=== PATIENT | female | born 1930 | race Caucasian/White ===

== ENCOUNTER 2018-11-10 08:09 | Emergency (ER) | payer OTHER, MEDICARE ==
--- NOTE | 2018-11-10 08:44 | EDM.PDOC ---
ED HPI GENERAL MEDICAL PROBLEM - General Chief Complaint: Lower Extremity Injury/Pain Stated Complaint: Hip pain Time Seen by Provider: 11/10/18 08:35 Source of Information: Reports: Patient, [facility] Records, Old Records ([facility] chart/EMR) History Limitations: Reports: Altered Mental Status - History of Present Illness INITIAL COMMENTS - FREE TEXT/NARRATIVE: The patient was brought to the emergency room via transport vehicle in a wheelchair from [facility] in [place] for evaluation of 10/10 right hip pain, which does radiate to the right knee, with additional 2/10 right mid proximal arm pain with symptoms starting after a minor unwitnessed fall at the long-term this past evening at about 23:50 hours. The patient did receive 25 mg of Ultram at 1 AM this morning and is having some difficulty with ambulation today despite patient ambulating with minimal guarding after the above injury. She is a somewhat poor historian secondary to her baseline organic brain syndrome, which is stable by history. Patient apparently felt her leg give out while walking to the bathroom with no history of head injury, aggravation of her previous neck injury, loss of consciousness, change in mental status, headaches, visual changes, diplopia, change in neurological status, or other complaints or injuries. The patient denies any chest pain/ pressure, heart flutter, dizziness, orthostasis, orthopnea, diaphoresis, paresthesias, recent decreased exercise tolerance, or any other anginal-type symptoms. No recent history of abdominal pain, heartburn, nausea, diarrhea, melena, gross hematochezia, or any food intolerance, including fatty foods, etc.. She denies any gross hematuria, colic, or other UTI symptoms. The patient also denies any recent fever, cough, wheezing, dyspnea, etc.. Onset: Today, Sudden Onset Date: 11/09/18 Onset Time: 23:50 Duration: Constant Location: Reports: Upper Extremity, Right, Lower Extremity, Right, Radiates to ( Right knee as above). Denies: Head, Face, Neck, Chest, Abdomen, Back, Pelvis, Upper Extremity, Left, Lower Extremity, Left Quality: Reports: Ache, Same as Previous Episode Severity: Severe Improves with: Reports: Rest Worsens with: Reports: Movement Context: Reports: Trauma (As above) Associated Symptoms: Reports: Confusion (Stable baseline). Denies: Chest Pain, Cough, cough w sputum, Diaphoresis, Fever/Chills, Headaches, Loss of Appetite, Malaise, Nausea/Vomiting, Seizure, Shortness of Breath, Syncope, Weakness Treatments CONSUMER INSIGHT ANALYST: Reports: Other Medication(s) (As above) Right Hip Pain Score (Numeric/FACES): 10 Right Arm Pain Score (Numeric/FACES): 2 - Related Data Allergies Allergy/AdvReac Type Severity Reaction Status Date / Time cefaclor [From Ceclor] Allergy hives, high Verified 11/10/18 08:26 ciprofloxacin [From Cipro] Allergy unknown Verified 11/10/18 08:26 Penicillins Allergy hives Verified 11/10/18 08:26 (high) piroxicam Allergy Bronchospas Verified 11/10/18 08:26 ms Sulfa (Sulfonamide Allergy unknown Verified 11/10/18 08:26 Antibiotics) sulindac Allergy hives high Verified 11/10/18 08:26 clothes dye Allergy Cannot Uncoded 11/10/18 08:26 Remember Home Meds: Home Meds Carboxymethylcellulose Sodium [Refresh Tears 0.5%] 2 drop EYEBOTH TID@0700,1300, 1800 09/03/18 [History] Cholecalciferol (Vitamin D3) [Vitamin D3] 1,000 units PO BID@0700,1800 09/03/18 [History] Eucalyptus Oil/Menthol/Camphor [Vicks Vaporub Ointment] 1 applic TOP ASDIRECTED PRN 09/03/18 [History] Gabapentin [Neurontin] 200 mg PO QPM 09/03/18 [History] Levothyroxine Sodium [Synthroid] 175 mcg PO DAILY@0700 09/03/18 [History] Loperamide [Imodium] 4 mg PO ASDIRECTED PRN 09/03/18 [History] Non-Formulary Medication [NF Drug] 1 each PO ASDIRECTED 09/03/18 [History] Phenylephrine HCl [Sudogest PE] 10 mg PO Q4HR PRN 09/03/18 [History] Psyllium Husk (With Sugar) [Metamucil Powder] 1 tbsp PO DAILY PRN 09/03/18 [ History] Acetaminophen [Tylenol Arthritis] 650 mg PO BID #100 tablet.er 09/07/18 [Rx] Acetaminophen [Tylenol] 650 mg PO Q4H PRN tablet 09/07/18 [Rx] Albuterol [Proventil Neb Soln] 2.5 mg NEB Q2H PRN #30 neb 09/07/18 [Rx] Albuterol/Ipratropium [DuoNeb 3.0-0.5 MG/3 ML] 3 ml NEB Q4HR PRN #30 neb [Rx] Albuterol/Ipratropium [DuoNeb 3.0-0.5 MG/3 ML] 3 ml NEB QID #120 neb 09/07/18 [ Rx] Budesonide [Pulmicort] 0.5 mg NEB BIDRT #60 neb 09/07/18 [Rx] Dextromethorphan/guaiFENesin [Mucinex DM ER 600-30 MG] 1 tab PO BID PRN tab.er 09/07/18 [Rx] Diltiazem [Cardizem CD] 120 mg PO QPM #90 cap.cd 09/07/18 [Rx] Sertraline [Zoloft] 50 mg PO QPM #30 tablet 09/07/18 [Rx] Carboxymethylcellulose/Lytes [Dereck-Stir Oral [place]] 1 applic MM Q1H PRN 11/10/18 [History] Celecoxib [CeleBREX] 200 mg PO DAILY 11/10/18 [History] Hydrocortisone [Hydrocortisone 1% Crm] 1 applic TOP QID PRN 11/10/18 [History] Menthol/Methyl Salicylate [Analgesic [place]] 1 applic TOP DAILY 11/10/18 [History] [place]-3/DHA/Epa/Fish Oil [[place] 3 500 Softgel] 1 each PO DAILY 11/10/18 [History ] Omeprazole 20 mg PO BID 11/10/18 [History] Phenol [Ora Relief] 1 spray MM Q2H PRN 11/10/18 [History] Temazepam [Restoril] 15 mg PO BEDTIME 11/10/18 [History] guaiFENesin/Dextromethorphan [Tussin DM Clear] 10 ml PO Q4H PRN 11/10/18 [ History] hydrOXYzine HCl [Atarax] 25 mg PO Q6H 11/10/18 [History] traMADol [Ultram] 25 mg PO Q6H PRN 11/10/18 [History] Past Medical History HEENT History: Reports: Allergic Rhinitis, Cataract, Hard of Hearing, Impaired Vision, Macular Degeneration, Otitis Media, Other (See Below). Denies: Glaucoma , Retinal Detachment Other HEENT History: Bilateral presbycusis with patient not having hearing aid therapy. She does wear glasses. Dry eye syndrome. Cardiovascular History: Reports: Afib, Arrhythmia, Cardiomyopathy, Heart Failure , High Cholesterol, Hypertension, Other (See Below). Denies: Aneurysm, Blood Clots/VTE/DVT, CAD, Heart Murmur, GA, Pacemaker, PVD, Syncope Other Cardiovascular History: Atrial fibrillation with rapid ventricular response on 09/03/18. PACs, PVCs. Repolarization changes versus borderline incomplete bundle branch block. Orthostatic hypotension as below. Respiratory History: Reports: Bronchitis, Recurrent, COPD, Intubation, Previous , Pneumonia, Recurrent, Pulmonary Fibrosis, Other (See Below). Denies: Asthma, Intubation, Difficult, PE, Pneumothorax, Sleep Apnea, TB Other Respiratory History: idiopathic pulmonary fibrosis. Gastrointestinal History: Reports: Cholelithiasis, Chronic Constipation, Chronic Diarrhea, Diverticulosis, Gastritis, GERD, Hiatal Hernia, PUD, Other ( See Below). Denies: Celiac Disease, Colon Polyp, GI Bleed, Hepatitis, Inflammatory Bowel Disease, Irritable Bowel Syndrome, Jaundice, Pancreatitis Other Gastrointestinal History: Dysphagia. Moderate hiatal hernia. Severe diverticulosis requiring partial colectomy as below. Large duodenal diverticulum by upper GI in 2013 Genitourinary History: Reports: Renal Calculus, Urinary Incontinence, UTI, Recurrent, Other (See Below). Denies: Acute Renal Failure, Chronic Renal Insuffiency, Retention, Urinary, STD Other Genitourinary History: Urethral stones and periurethral diverticuli by CT scan on 11/10/18. TOBACCO ROLLER History: Reports: , Spontaneous : 9 Para: 8 LMP (Approximate): Other (See Below) Other TOBACCO ROLLER History: Surgical menopause as below. Atrophic vaginitis with previous topical Premarin vaginal cream therapy however not currently. SAB in first trimester requiring D&C as below. Otherwise, Full term without complications during pregnancies or deliveries. Musculoskeletal History: Reports: Arthritis, Back Pain, Chronic, Fracture, Neck Pain, Chronic, Osteoarthritis, Osteoporosis, Other (See Below). Denies: Gout, RA, SLE Other Musculoskeletal History: C1 arch fracture with secondary grade 1 spondylolisthesis with current chronic hard collar therapy. Cervical spinal fusions as below. T11 vertebral body compression fracture. Kyphosis, degenerative disc disease with radiculopathy, spondylosis, and chronic neck and back pain. Partial left shoulder rotator cuff tear. Neurological History: Reports: Alzheimers Disease, Neuropathy, Diabetic, Neuropathy, Peripheral, Other (See Below). Denies: Cerebral Aneurysms, Concussion, CVA, Headaches, Chronic, Head Trauma, Migraines, MS, Parkinson's, Seizure, TIA, Vertigo Other Neuro History: Borderline organic brain syndrome. Cerebral atrophy by CT scan. Orthostatic hypotension. Psychiatric History: Reports: Addiction, Anxiety, Dementia, Depression, Other ( See Below). Denies: Abuse, Victim of, ADD, ADHD, Hallucinations, Psych Hospitalization(s), Psychosis, PTSD, Suicide Attempt, Suicidal Ideation Other Psychiatric History: Organic brain syndrome as above. Chronic insomnia. Chronic Ultram use. Endocrine/Metabolic History: Reports: Diabetes, Type II, Hypothyroidism, Osteopenia, Osteoporosis, Other (See Below). Denies: Diabetes, Gestational, Diabetes, Type I, Diabetes Mellitus, Type 3c, IDDM, Obesity/BMI 30+ Other Endocrine/Metabolic History: Hypokalemia. Hypomagnesemia. Hypoalbuminemia. Hematologic History: Reports: None. Denies: Anemia, B12 Deficiency, Blood Transfusion(s), Iron Deficiency Immunologic History: Reports: None. Denies: AIDS, HIV, SLE Oncologic (Cancer) History: Reports: None. Denies: Basal Cell Carcinoma, Breast , Cervix, Hodgkin's Lymphoma, Leukemia, Lymphoma, Malignant Melanoma, Non- Hodgkin's Lymphoma, Ovarian, Uterine Dermatologic History: Reports: Seborrheic Dermatitis. Denies: Eczema, Psoriasis - Infectious Disease History Infectious Disease History: Reports: Chicken Pox, Measles, Mumps. Denies: C- Difficile, Meningitis, Mononucleosis, MRSA, Pertussis (Whooping Cough), Rheumatic Fever, Rubella, Scarlet Fever, Shingles, TB, VRE - Past Surgical History Head Surgeries/Procedures: Reports: None HEENT Surgical History: Reports: Cataract Surgery, Myringotomy w Tube(s), Oral Surgery, Other (See Below). Denies: Adenoidectomy, Laser Surgery, LASIK, Naso- Sinus Surgery, Tonsillectomy Other HEENT Surgeries/Procedures: Multiple tooth extractions. Left cataract surgery on 01/23/04. Right cataract surgery on 12/19/03. Bilateral PE tubes in her 20s. Cardiovascular Surgical History: Reports: None. Denies: Pacer, Varicose Respiratory Surgical History: Reports: None. Denies: Thoracentesis GI Surgical History: Reports: Appendectomy, Cholecystectomy, Colon, Other (See Below). Denies: Colonoscopy, EGD, Hernia, Abdominal, Hernia, Inguinal, Hernia Repair/Other, Polypectomy Other GI Surgeries/Procedures: Partial colectomy secondary to diverticulosis. Laparoscopic cholecystectomy in her 40s. Female Surgical History: Reports: D&C, Hysterectomy, Other (See Below). Denies: Breast Biopsy, Section, Oophorectomy, Salpingo-Oophorectomy, Tubal Ligation Other Female Surgeries/Procedures: D&C secondary to SAB. Hysterectomy and probable concomitant bladder suspension. Unknown type of urethral surgery by CT scan on 11/10/18. Endocrine Surgical History: Reports: None. Denies: Thyroid Biopsy Neurological Surgical History: Reports: C-Spine, Lumbar Spine, Spinal Fusion, Other (See Below) Other Neurological Surgeries/Procedures: Spinal fusion of C3-4 and C5-C6. Unknown type of lumbar surgery. Musculoskeletal Surgical History: Reports: None. Denies: Arthroscopic Procedure , Carpal Tunnel, Ganglion Cyst, Joint Replacement, ORIF, Shoulder Surgery Oncologic Surgical History: Reports: None Dermatological Surgical History: Reports: None - Past Imaging History Past Imaging History: Reports: CAT Scan (CT of the C-spine on 10/21/[address] of the brain on 12/26/16. CT of the head and C-spine on 12/17/16.), MRI ( MRI of the C-spine on 09/13/18. MRI of the left shoulder on 10/12/12.), PFT (.), Swallow Study (09/16/18, 02/25/18 and 07/17/16.), Upper GI X-Ray/Series () Social & Family History - Family History Family Medical History: Unobtainable - Tobacco Use Smoking Status *Q: Never Smoker Tobacco Use Within Last Twelve Months: No Used Tobacco, but Quit: No Smoking Cessation Information Provided To Patient: No Second Hand Smoke Exposure: No Second Hand Smoke Education Provided: No - Caffeine Use Caffeine Use: Reports: Coffee (1 cup per day), Tea (2 cups per day). Denies: Energy Drinks, Soda - Alcohol Use Alcohol Use History: Yes Days Per Week of Alcohol Use: 0 Number of Drinks Per Day: 1 Number of Drinks Per Day Comment: Very occasional for holidays. No previous DWIs , problems with alcohol abuse, etc. 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 ED EXAM, GENERAL - Physical Exam Exam: See Below Exam Limited By: No Limitations General Appearance: Alert, WD/WN, No Apparent Distress Eye Exam: Bilateral Eye: EOMI, Normal Inspection (No nystagmus. Patient wearing glasses), PERRL Neck: Supple, Non-Tender, Limited Range of Motion (Secondary to hard cervical collar which is used chronically for her previous neck injury as below). No: Lymphadenopathy (L), Lymphadenopathy (R), Thyromegaly Respiratory/Chest: No Respiratory Distress, No Accessory Muscle Use, Chest Non- Tender, Rales (Mild bilateral basilar). No: Pleural Rub, Retractions Cardiovascular: Normal Peripheral Pulses, Regular Rate, Rhythm, No Edema, No Gallop, No JVD, No Murmur, No Rub. No: Gallop/S3, Gallop/S4, Friction Rub Peripheral Pulses: 1+: Dorsalis Pedis (L), Dorsalis Pedis (R), 2+: Radial (L), Radial (R) GI/Abdominal: Normal Bowel Sounds, Soft, Non-Tender, No Organomegaly, No Distention, No Abnormal Bruit, No Mass, Pelvis Stable. No: Guarding (Female) Exam: Deferred Rectal (Female) Exam: Deferred Back Exam: Full Range of Motion, Other (Mild kyphosis). No: CVA Tenderness (L) , CVA Tenderness (R), Muscle Spasm Extremities: No Pedal Edema, Normal Capillary Refill, Arm Pain (Nonspecific mild borderline palpation pain over the mid right humeral region with no significant ecchymosis, deformity, crepitation, etc.), Leg Pain (Mild to moderate outpatient pain over the right hip with no leg rotation, deformity, crepitation, etc.. Mild 2 centimeter abrasion over the right patella with overall good range of motion and no significant localized tenderness, effusion, deformity, instability, etc. of the right knee.), Limited Range of Motion (Mild in right hip secondary to discomfort). No: Joint Swelling, Mary's Sign Neurological: Alert, CN II-XII Intact, Normal Reflexes (Negative Babinski's), No Motor/Sensory Deficits, Confused (Stable baseline). No: Normal Gait ( Nonambulatory secondary to hip discomfort) Psychiatric: Normal Affect, Normal Mood Skin Exam: Warm, Dry, Intact, Normal Color, No Rash. No: Diaphoretic, Ecchymosis, Wound/Incision Lymphatic: No Adenopathy Course - Vital Signs Last Recorded V/S: Last Vital Signs Temp 36.5 C 11/10/18 08:11 Pulse 84 11/10/18 10:30 Resp 18 11/10/18 10:30 BP 134/88 11/10/18 10:30 Pulse Ox 94 L 11/10/18 10:30 Vital Signs - 24 hr 11/10/18 11/10/18 08:11 10:30 Temperature [ 36.5 C Temporal] Pulse, 85 84 Peripheral [ Right Pulse Oximetry] Respiratory 18 18 Rate Blood Pressure 152/68 H 134/88 [Right Upper Arm] O2 Sat by Pulse 95 94 L Oximetry - Orders/Labs/Meds Orders: Active Orders 24 hr Category Date Time Status Hip Min 2V or 3V w Pelvis Rt [CR] Stat Exams 11/10/18 08:47 Taken Hip wo Cont Rt [CT] Stat Exams 11/10/18 09:13 Taken Humerus Rt [CR] Stat Exams 11/10/18 08:46 Taken Obtain Past Medical Record [OM.PC] Routine Oth 11/10/18 08:44 Active Labs: None Meds: None - Radiology Interpretation Free Text/Narrative:: X-rays of the right hip including AP view of the pelvis shows moderate osteoarthritic changes including moderate bilateral coxarthrosis and osteoarthritic and osteoporotic changes in the limited view from the lumbar spine. No evidence of pelvic fracture. Possible right femoral head compression injury with no displacement, angulation, etc. X-rays of the right humerus, 2 views, shows evidence of moderate osteophytic changes but no fracture, dislocation, etc. Despite my initial request for preliminary verbal report from the radiology department at [facility], a fax copy of the final report was eventually sent to this facility. Note subcapital right femoral neck compression fracture with minimal impaction. Incidental previous apparent urethral surgery and urethral stones and diverticuli. Departure - Departure Time of Disposition: 11:50 Disposition: DC/Tfer to Acute Hospital 02 Condition: Fair Clinical Impression: Confusion, CHF, Congestive heart failure, Comfort measures only status Hypertension Qualifiers: Hypertension type: essential hypertension Qualified Code(s): I10 - Essential ( primary) hypertension COPD (chronic obstructive pulmonary disease) Qualifiers: COPD type: emphysema Emphysema type: panlobular Qualified Code(s): J43.1 - Panlobular emphysema Osteoarthritis Qualifiers: Osteoarthritis location: multiple joints Osteoarthritis type: primary Qualified Code(s): M15.0 - Primary generalized (osteo)arthritis Fracture of femoral neck, right Qualifiers: Encounter type: initial encounter Fracture type: closed Qualified Code(s): S72.001A - Fracture of unspecified part of neck of right femur, initial encounter for closed fracture Contusion Qualifiers: Encounter type: initial encounter Contusion area: knee Laterality: right Qualified Code(s): S80.01XA - Contusion of right knee, initial encounter - Discharge Information *PRESCRIPTION DRUG MONITORING PROGRAM REVIEWED*: Not Applicable *COPY OF PRESCRIPTION DRUG MONITORING REPORT IN PATIENT GUEVARA: Not Applicable Referrals: Sheets-Darlin Jacques MD [Primary Care Provider] - Forms: ED Department Discharge, Interfacility Transfer EMTALA - Problem List & Annotations (1) Fracture of femoral neck, right SNOMED Code(s): 2452355 Code(s): S72.001A - FRACTURE OF UNSP PART OF NECK OF RIGHT FEMUR, INIT Status: Acute Priority: High Current Visit: No Onset Date: 11/10/18 Annotation/Comment:: Compression fracture of the right femoral neck by CT scan as above. Various therapeutic options were discussed with the patient, who does agree to further treatment despite her status as below. It was confirmed through the long-term that the patient does make her own medical decisions. Her daughter, Collin, was notified by phone by the ER nurse, with daughter in agreement with the treatment plan as below. Initial telephone consultation at 10 :25 AM with [facility]. Subsequent telephone consultation at 11: [address] Camargo, orthopedic surgeon at [facility], who does accept the patient for direct admission, although he is requesting that the patient be admitted through the hospitalist service. Subsequent immediate telephone consultation with Dr. Gonzalez, hospitalist, who does accept the patient for admission, with no further treatment recommendations given. Ambulance transfer with puzzle assembler accompaniment. Qualifiers: Encounter type: initial encounter Fracture type: closed Qualified Code(s) : S72.001A - Fracture of unspecified part of neck of right femur, initial encounter for closed fracture (2) Contusion SNOMED Code(s): 024487398 Code(s): T14.8XXA - OTHER INJURY OF UNSPECIFIED BODY REGION, INITIAL ENCOUNTER Status: Acute Priority: High Current Visit: No Onset Date: 02/20 Annotation/Comment:: Mild Right arm and right knee contusion with no evidence of significant injury as above. Qualifiers: Encounter type: initial encounter Contusion area: knee Laterality: right Qualified Code(s): S80.01XA - Contusion of right knee, initial encounter (3) Comfort measures only status SNOMED Code(s): 65651326172165 Code(s): Z51.5 - ENCOUNTER FOR PALLIATIVE CARE Status: Chronic Priority: Medium Current Visit: No Annotation/Comment:: Previous comfort care only status. The patient is aware that she will have to lift her NO CODE STATUS for any surgery. (4) Osteoarthritis SNOMED Code(s): 545396764 Code(s): M19.90 - UNSPECIFIED OSTEOARTHRITIS, UNSPECIFIED SITE Status: Chronic Priority: Medium Current Visit: No Annotation/Comment:: Otherwise stable by history Qualifiers: Osteoarthritis location: multiple joints Osteoarthritis type: primary Qualified Code(s): M15.0 - Primary generalized (osteo)arthritis (5) CHF, Congestive heart failure SNOMED Code(s): 12858357 Code(s): I50.9 - HEART FAILURE, UNSPECIFIED Status: Chronic Priority: High Current Visit: No Onset Date: 09/03/18 Annotation/Comment:: Stable by history with no recent history of chest pain, anginal complaints, heart flutter, etc. Note previous history of cardiac arrhythmia including atrial fibrillation, PACs, PVCs, etc. with no current anticoagulation therapy. (6) Confusion SNOMED Code(s): 037888801 Code(s): R41.0 - DISORIENTATION, UNSPECIFIED Status: Chronic Priority: Medium Current Visit: No Annotation/Comment:: Stable by history and by exam with the patient making her own medical decisions as above (7) COPD (chronic obstructive pulmonary disease) SNOMED Code(s): 34762302 Code(s): J44.9 - CHRONIC OBSTRUCTIVE PULMONARY DISEASE, UNSPECIFIED Status : Chronic Priority: Medium Current Visit: No Annotation/Comment:: Stable by history with no history of recent fever, bronchitic type symptoms, etc. Note additional history of pulmonary fibrosis. Qualifiers: COPD type: emphysema Emphysema type: panlobular Qualified Code(s): J43.1 - Panlobular emphysema (8) Diabetes mellitus SNOMED Code(s): 49198668 Code(s): E11.9 - TYPE 2 DIABETES MELLITUS WITHOUT COMPLICATIONS Status: Chronic Priority: Medium Current Visit: No Annotation/Comment:: Stable by history. Continue to observe closely by her regular providers. Qualifiers: Diabetes mellitus type: type 2 Diabetes mellitus salvage determiner insulin use: without salvage determiner use Diabetes mellitus complication status: with neurologic complications Diabetes mellitus complication detail: with polyneuropathy Qualified Code(s): E11.42 - Type 2 diabetes mellitus with diabetic polyneuropathy (9) Hypertension SNOMED Code(s): 52086294 Code(s): I10 - ESSENTIAL (PRIMARY) HYPERTENSION Status: Chronic Priority : Medium Current Visit: No Annotation/Comment:: Blood pressures under good control in the emergency room. Continue to observe closely by her regular providers. Qualifiers: Hypertension type: essential hypertension Qualified Code(s): I10 - Essential (primary) hypertension - Problem List Review Problem List Initiated/Reviewed/Updated: Yes - My Orders Last 24 Hours: My Active Orders 11/10/18 08:44 Obtain Past Medical Record [OM.PC] Routine 11/10/18 08:46 Humerus Rt [CR] Stat 11/10/18 08:47 Hip Min 2V or 3V w Pelvis Rt [CR] Stat 11/10/18 09:13 Hip wo Cont Rt [CT] Stat - Assessment/Plan Last 24 Hours: My Active Orders 11/10/18 08:44 Obtain Past Medical Record [OM.PC] Routine 11/10/18 08:46 Humerus Rt [CR] Stat 11/10/18 08:47 Hip Min 2V or 3V w Pelvis Rt [CR] Stat 11/10/18 09:13 Hip wo Cont Rt [CT] Stat Assessment:: As above Plan: As above. Extensive precautions were given to the patient, who is in agreement with the treatment plan. This record to be faxed to the [facility] in [place]. See Patient Instructions for further treatment and plan.
[2018-11-10 11:53] VITALS: BP 134/88
== END 2018-11-10 11:50 ==
LOC: LL.ED 08:09
DX: S72.001A Fracture of unspecified part of neck of right femur, initial encounter for closed fracture (principal); S80.01XA Contusion of right knee, initial encounter; R41.0 Disorientation, unspecified; J43.1 Panlobular emphysema; M15.0 Primary generalized (osteo)arthritis; I11.0 Hypertensive heart disease with heart failure; I50.9 Heart failure, unspecified; E11.40 Type 2 diabetes mellitus with diabetic neuropathy, unspecified; E11.21 Type 2 diabetes mellitus with diabetic nephropathy; Z88.0 Allergy status to penicillin; Z88.2 Allergy status to sulfonamides; Z79.899 Other long term (current) drug therapy; W19.XXXA Unspecified fall, initial encounter
CPT/HCPCS: 73060-RT; 73700-RT; 99285

== ENCOUNTER 2018-11-30 20:49 | Emergency (ER) | payer MEDICARE, OTHER ==
[2018-11-30 21:17] LABS: CHLORIDE,CL 101 mmol/L (98-107); SODIUM,NA 137 mmol/L (136-145)
--- NOTE | 2018-11-30 21:49 | EDM.PDOC ---
ED HPI GENERAL MEDICAL PROBLEM - General Stated Complaint: trauma, fall, head laceration Time Seen by Provider: 11/30/18 20:50 Source of Information: Reports: Patient, EMS History Limitations: Reports: No Limitations, Physical Impairment - History of Present Illness INITIAL COMMENTS - FREE TEXT/NARRATIVE: Patient is a 88-year-old female who was brought in from [place] secondary to a trauma marianne ENT S states that they called from [place] always 88-year-old female who had fallen hitting her head complaining of severe pain at this time they called a trauma code secondary to the fact that the patient was in severe pain and recently had fallen and had a cervical fracture. 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 - Related Data Allergies Allergy/AdvReac Type Severity Reaction Status Date / Time cefaclor [From Ceclor] Allergy hives, high Verified 11/30/18 21:15 ciprofloxacin [From Cipro] Allergy unknown Verified 11/30/18 21:15 Penicillins Allergy hives Verified 11/30/18 21:15 (high) piroxicam Allergy Bronchospas Verified 11/30/18 21:15 ms Sulfa (Sulfonamide Allergy unknown Verified 11/30/18 21:15 Antibiotics) sulindac Allergy hives high Verified 11/30/18 21:15 clothes dye Allergy Cannot Uncoded 11/30/18 21:15 Remember Home Meds: Home Meds Carboxymethylcellulose Sodium [Refresh Tears 0.5%] 2 drop EYEBOTH TID@0700,1300, 1800 09/03/18 [History] Cholecalciferol (Vitamin D3) [Vitamin D3] 1,000 units PO BID@0700,1800 09/03/18 [History] Eucalyptus Oil/Menthol/Camphor [Vicks Vaporub Ointment] 1 applic TOP ASDIRECTED PRN 09/03/18 [History] Gabapentin [Neurontin] 200 mg PO QPM 09/03/18 [History] Levothyroxine Sodium [Synthroid] 175 mcg PO DAILY@0700 09/03/18 [History] Loperamide [Imodium] 4 mg PO ASDIRECTED PRN 09/03/18 [History] Non-Formulary Medication [NF Drug] 1 each PO ASDIRECTED 09/03/18 [History] Phenylephrine HCl [Sudogest PE] 10 mg PO Q4HR PRN 09/03/18 [History] Psyllium Husk (With Sugar) [Metamucil Powder] 1 tbsp PO DAILY PRN 09/03/18 [ History] Acetaminophen [Tylenol Arthritis] 650 mg PO BID #100 tablet.er 09/07/18 [Rx] Acetaminophen [Tylenol] 650 mg PO Q4H PRN tablet 09/07/18 [Rx] Albuterol [Proventil Neb Soln] 2.5 mg NEB Q2H PRN #30 neb 09/07/18 [Rx] Albuterol/Ipratropium [DuoNeb 3.0-0.5 MG/3 ML] 3 ml NEB Q4HR PRN #30 neb [Rx] Albuterol/Ipratropium [DuoNeb 3.0-0.5 MG/3 ML] 3 ml NEB QID #120 neb 09/07/18 [ Rx] Budesonide [Pulmicort] 0.5 mg NEB BIDRT #60 neb 09/07/18 [Rx] Dextromethorphan/guaiFENesin [Mucinex DM ER 600-30 MG] 1 tab PO BID PRN tab.er 09/07/18 [Rx] Diltiazem [Cardizem CD] 120 mg PO QPM #90 cap.cd 09/07/18 [Rx] Sertraline [Zoloft] 50 mg PO QPM #30 tablet 09/07/18 [Rx] Carboxymethylcellulose/Lytes [Dereck-Stir Oral [place]] 1 applic MM Q1H PRN 11/10/18 [History] Celecoxib [CeleBREX] 200 mg PO DAILY 11/10/18 [History] Hydrocortisone [Hydrocortisone 1% Crm] 1 applic TOP QID PRN 11/10/18 [History] Menthol/Methyl Salicylate [Analgesic [place]] 1 applic TOP DAILY 11/10/18 [History] Omeprazole 20 mg PO BID 11/10/18 [History] Phenol [Ora Relief] 1 spray MM Q2H PRN 11/10/18 [History] Temazepam [Restoril] 15 mg PO BEDTIME 11/10/18 [History] guaiFENesin/Dextromethorphan [Tussin DM Clear] 10 ml PO Q4H PRN 11/10/18 [ History] hydrOXYzine HCl [Atarax] 25 mg PO Q6H 11/10/18 [History] traMADol [Ultram] 25 mg PO Q6H PRN 11/10/18 [History] Loratadine 10 mg PO DAILY@1800 11/30/18 [History] Non-Formulary Medication [NF Drug] 360 mg PO DAILY 11/30/18 [History] Past Medical History HEENT History: Reports: Allergic Rhinitis, Cataract, Hard of Hearing, Impaired Vision, Macular Degeneration, Otitis Media, Other (See Below). Denies: Glaucoma , Retinal Detachment Other HEENT History: Bilateral presbycusis with patient not having hearing aid therapy. She does wear glasses. Dry eye syndrome. Cardiovascular History: Reports: Afib, Arrhythmia, Cardiomyopathy, Heart Failure , High Cholesterol, Hypertension, Other (See Below). Denies: Aneurysm, Blood Clots/VTE/DVT, CAD, Heart Murmur, IA, Pacemaker, PVD, Syncope Other Cardiovascular History: Atrial fibrillation with rapid ventricular response on 09/03/18. PACs, PVCs. Repolarization changes versus borderline incomplete bundle branch block. Orthostatic hypotension as below. Respiratory History: Reports: Bronchitis, Recurrent, COPD, Intubation, Previous , Pneumonia, Recurrent, Pulmonary Fibrosis, Other (See Below). Denies: Asthma, Intubation, Difficult, PE, Pneumothorax, Sleep Apnea, TB Other Respiratory History: idiopathic pulmonary fibrosis. Gastrointestinal History: Reports: Cholelithiasis, Chronic Constipation, Chronic Diarrhea, Diverticulosis, Gastritis, GERD, Hiatal Hernia, PUD, Other ( See Below). Denies: Celiac Disease, Colon Polyp, GI Bleed, Hepatitis, Inflammatory Bowel Disease, Irritable Bowel Syndrome, Jaundice, Pancreatitis Other Gastrointestinal History: Dysphagia. Moderate hiatal hernia. Severe diverticulosis requiring partial colectomy as below. Large duodenal diverticulum by upper GI in 2013 Genitourinary History: Reports: Renal Calculus, Urinary Incontinence, UTI, Recurrent, Other (See Below). Denies: Acute Renal Failure, Chronic Renal Insuffiency, Retention, Urinary, STD Other Genitourinary History: Urethral stones and periurethral diverticuli by CT scan on 11/10/18. ASSOCIATE MATERIAL HANDLER History: Reports: , Spontaneous Other ASSOCIATE MATERIAL HANDLER History: Surgical menopause as below. Atrophic vaginitis with previous topical Premarin vaginal cream therapy however not currently. SAB in first trimester requiring D&C as below. Otherwise, Full term without complications during pregnancies or deliveries. Musculoskeletal History: Reports: Arthritis, Back Pain, Chronic, Fracture, Neck Pain, Chronic, Osteoarthritis, Osteoporosis, Other (See Below). Denies: Gout, RA, SLE Other Musculoskeletal History: C1 arch fracture with secondary grade 1 spondylolisthesis with current chronic hard collar therapy. Cervical spinal fusions as below. T11 vertebral body compression fracture. Kyphosis, degenerative disc disease with radiculopathy, spondylosis, and chronic neck and back pain. Partial left shoulder rotator cuff tear. Neurological History: Reports: Alzheimers Disease, Neuropathy, Diabetic, Neuropathy, Peripheral, Other (See Below). Denies: Cerebral Aneurysms, Concussion, CVA, Headaches, Chronic, Head Trauma, Migraines, MS, Parkinson's, Seizure, TIA, Vertigo Other Neuro History: Borderline organic brain syndrome. Cerebral atrophy by CT scan. Orthostatic hypotension. Psychiatric History: Reports: Addiction, Anxiety, Dementia, Depression, Other ( See Below). Denies: Abuse, Victim of, ADD, ADHD, Hallucinations, Psych Hospitalization(s), Psychosis, PTSD, Suicide Attempt, Suicidal Ideation Other Psychiatric History: Organic brain syndrome as above. Chronic insomnia. Chronic Ultram use. Endocrine/Metabolic History: Reports: Diabetes, Type II, Hypothyroidism, Osteopenia, Osteoporosis, Other (See Below). Denies: Diabetes, Gestational, Diabetes, Type I, Diabetes Mellitus, Type 3c, IDDM, Obesity/BMI 30+ Other Endocrine/Metabolic History: Hypokalemia. Hypomagnesemia. Hypoalbuminemia. Hematologic History: Reports: None. Denies: Anemia, B12 Deficiency, Blood Transfusion(s), Iron Deficiency Immunologic History: Reports: None. Denies: AIDS, HIV, SLE Oncologic (Cancer) History: Reports: None. Denies: Basal Cell Carcinoma, Breast , Cervix, Hodgkin's Lymphoma, Leukemia, Lymphoma, Malignant Melanoma, Non- Hodgkin's Lymphoma, Ovarian, Uterine Dermatologic History: Reports: Seborrheic Dermatitis. Denies: Eczema, Psoriasis - Infectious Disease History Infectious Disease History: Reports: Chicken Pox, Measles, Mumps. Denies: C- Difficile, Meningitis, Mononucleosis, MRSA, Pertussis (Whooping Cough), Rheumatic Fever, Rubella, Scarlet Fever, Shingles, TB, VRE - Past Surgical History Head Surgeries/Procedures: Reports: None HEENT Surgical History: Reports: Cataract Surgery, Myringotomy w Tube(s), Oral Surgery, Other (See Below). Denies: Adenoidectomy, Laser Surgery, LASIK, Naso- Sinus Surgery, Tonsillectomy Other HEENT Surgeries/Procedures: Multiple tooth extractions. Left cataract surgery on 01/23/04. Right cataract surgery on 12/19/03. Bilateral PE tubes in her 20s. Cardiovascular Surgical History: Reports: None. Denies: Pacer, Varicose Respiratory Surgical History: Reports: None. Denies: Thoracentesis GI Surgical History: Reports: Appendectomy, Cholecystectomy, Colon, Other (See Below). Denies: Colonoscopy, EGD, Hernia, Abdominal, Hernia, Inguinal, Hernia Repair/Other, Polypectomy Other GI Surgeries/Procedures: Partial colectomy secondary to diverticulosis. Laparoscopic cholecystectomy in her 40s. Female Surgical History: Reports: D&C, Hysterectomy, Other (See Below). Denies: Breast Biopsy, Section, Oophorectomy, Salpingo-Oophorectomy, Tubal Ligation Other Female Surgeries/Procedures: D&C secondary to SAB. Hysterectomy and probable concomitant bladder suspension. Unknown type of urethral surgery by CT scan on 11/10/18. Endocrine Surgical History: Reports: None. Denies: Thyroid Biopsy Neurological Surgical History: Reports: C-Spine, Lumbar Spine, Spinal Fusion, Other (See Below) Other Neurological Surgeries/Procedures: Spinal fusion of C3-4 and C5-C6. Unknown type of lumbar surgery. Musculoskeletal Surgical History: Reports: None. Denies: Arthroscopic Procedure , Carpal Tunnel, Ganglion Cyst, Joint Replacement, ORIF, Shoulder Surgery Oncologic Surgical History: Reports: None Dermatological Surgical History: Reports: None - Past Imaging History Past Imaging History: Reports: CAT Scan (CT of the C-spine on 10/21/[address] of the brain on 12/26/16. CT of the head and C-spine on 12/17/16.), MRI ( MRI of the C-spine on 09/13/18. MRI of the left shoulder on 10/12/12.), PFT (.), Swallow Study (09/16/18, 02/25/18 and 07/17/16.), Upper GI X-Ray/Series () Social & Family History - Family History Family Medical History: Unobtainable - Caffeine Use Caffeine Use: Reports: Coffee (1 cup per day), Tea (2 cups per day). 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) ED ROS GENERAL - Review of Systems Review Of Systems: See Below Constitutional: Reports: No Symptoms HEENT: Reports: No Symptoms Respiratory: Reports: No Symptoms Cardiovascular: Reports: No Symptoms Endocrine: Reports: No Symptoms GI/Abdominal: Reports: No Symptoms : Reports: No Symptoms Musculoskeletal: Reports: Neck Pain, Shoulder Pain, Back Pain Skin: Reports: Other (Occipital hematoma with 1 cm laceration not actively bleeding``````````````````````````````````````````````````````````) Neurological: Reports: Gait Disturbance Psychiatric: Reports: No Symptoms Hematologic/Lymphatic: Reports: No Symptoms Immunologic: Reports: No Symptoms ED EXAM, GENERAL - Physical Exam Exam: See Below Exam Limited By: Physical Impairment General Appearance: Alert, Mild Distress Ears: Normal External Exam, Normal Canal, Hearing Grossly Normal, Normal TMs Nose: Normal Inspection, Normal Mucosa, No Blood Throat/Mouth: Normal Inspection, Normal Lips, Normal Teeth, Normal Gums, Normal Oropharynx, Normal Voice, No Airway Compromise Head: Other (Laceration over occipital area) Neck: Supple, Limited Range of Motion, Tender Midline Respiratory/Chest: Crackles, Rales Cardiovascular: No Murmur Course - Orders/Labs/Meds Orders: Active Orders 24 hr Category Date Time Status Cervical Spine wo Cont [CT] Stat Exams 11/30/18 20:52 Ordered Head wo Cont [CT] Stat Exams 11/30/18 20:52 Ordered Shoulder Comp Rt [CR] Stat Exams 11/30/18 21:30 Ordered Labs: Laboratory Tests 11/30/18 11/30/18 Range/Units 21:00 21:00 WBC 6.4 (4.0-10.2) K/uL RBC 3.99 (3.77-5.09) M/uL Hgb 13.0 D (11.7-15.5) g/dL Hct 38.3 (34.0-46.0) % MCV 96.0 (84.0-98.0) fL MCH 32.6 (28.2-33.3) pg MCHC 33.9 (31.7-36.0) g/dL RDW 13.9 (11.2-14.1) % Plt Count 233 (150-350) K/uL Neut % (Auto) 57.7 (45.0-80.0) % Lymph % (Auto) 27.4 (10.0-50.0) % [place] % (Auto) 10.2 (2.0-14.0) % Eos % (Auto) 4.2 (0.0-5.0) % Baso % (Auto) 0.5 (0.0-2.0) % Neut # (Auto) 3.69 (1.40-7.00) K/uL Lymph # (Auto) 1.75 (0.50-3.50) K/uL [place] # (Auto) 0.65 (0.00-1.00) K/uL Eos # (Auto) 0.27 (0.00-0.50) K/uL Baso # (Auto) 0.03 (0.00-0.20) K/uL Sodium 137 (136-145) mmol/L Potassium 3.9 (3.5-5.1) mmol/L Chloride 101 (98-107) mmol/L Carbon Dioxide 29.4 (21.0-32.0) mmol/L BUN 20 H (7-18) mg/dL Creatinine 0.59 (0.51-1.17) mg/dL Est Cr Clr Drug Dosing TNP Estimated GFR (MDRD) > 60 mL/min Glucose 133 H (74-106) mg/dL Calcium 9.2 (8.5-10.1) mg/dL Total Bilirubin 0.2 (0.2-1.0) mg/dL AST 16 (15-37) U/L ALT 21 (12-78) U/L Alkaline Phosphatase 75 (46-116) IU/L Total Protein 7.3 (6.4-8.2) g/dL Albumin 3.1 L (3.4-5.0) g/dL Departure - Departure Time of Disposition: 22:17 Disposition: Home, Self-Care 01 Condition: Fair Clinical Impression: Cervical spine fracture - Discharge Information *PRESCRIPTION DRUG MONITORING PROGRAM REVIEWED*: No *COPY OF PRESCRIPTION DRUG MONITORING REPORT IN PATIENT GUEVARA: No Instructions: Neck Contusion Referrals: Darlin Sykes MD [Primary Care Provider] - Care Plan Goals: Patient is to continue wearing her c-collar resume all medications except for Lovenox restart Lovenox on December 03, 2018 patient is to ambulate with assistance and physical therapy and occupational therapy referrals for ADLs and ambulation - My Orders Last 24 Hours: My Active Orders 11/30/18 20:52 Cervical Spine wo Cont [CT] Stat Head wo Cont [CT] Stat 11/30/18 21:30 Shoulder Comp Rt [CR] Stat - Assessment/Plan Last 24 Hours: My Active Orders 11/30/18 20:52 Cervical Spine wo Cont [CT] Stat Head wo Cont [CT] Stat 11/30/18 21:30 Shoulder Comp Rt [CR] Stat
== END 2018-11-30 22:48 ==
LOC: LL.ED 20:49
DX: S12.9XXA Fracture of neck, unspecified, initial encounter (principal); S01.01XA Laceration without foreign body of scalp, initial encounter; E11.9 Type 2 diabetes mellitus without complications; E03.9 Hypothyroidism, unspecified; I48.91 Unspecified atrial fibrillation; K21.9 Gastro-esophageal reflux disease without esophagitis; Z79.899 Other long term (current) drug therapy; Z88.0 Allergy status to penicillin; Z88.1 Allergy status to other antibiotic agents; Z88.2 Allergy status to sulfonamides; Z91.041 Radiographic dye allergy status; W19.XXXA Unspecified fall, initial encounter
CPT/HCPCS: 36415; 70450; 72125; 73030-RT; 80053; 85025; 99285-25